=== PATIENT | male | born 1935 | race Caucasian/White ===

== ENCOUNTER 2022-03-02 13:26 | Emergency (ER) | payer OTHER ==
[2022-03-02 14:31] VITALS: RESP 18; TEMP 98.1; BMI 29.3
[2022-03-02 17:46] VITALS: BP 150/65; PULSE 80
[2022-03-02 17:54] LABS: BASO % 0.7 % (0-2.0); EOS % 3.3 % (0-4.5); HEMATOCRIT 44.6 % (35.4-49); HEMOGLOBIN 14.3 GM/dL (11.7-16.9); LYMPH % 18.6 % (8-40); MCH 28.2 pg (25.7-33.7); MCHC 32.1 g/dl (32.0-35.9); MEAN CELL VOLUME 87.8 fl (80-96); MEAN PLT VOLUME 9.2 fl (7.5-11.1); MONO % 9.8 % (3.8-10.2); NEUT % 67.6 % (42.8-82.8); PLATELET COUNT 157 10^3/uL (134-434); RBC 5.08 M/mm3 (4.00-5.60); RDW 15.1 % (11.9-15.9); WHITE BLOOD COUNT 5.6 K/mm3 (4.0-10.0)
[2022-03-02 18:12] LABS: BLOOD UREA NITROGEN 14.9 mg/dL (7-18)
== END 2022-03-02 20:40 | disposition left against medical advice (07) ==
LOC: JER 13:26
DX: I95.1 Orthostatic hypotension (principal)
CPT/HCPCS: 36415; 71046-TC-FY; 80048; 84484; 85025; 93005; 93010; 99284-25